=== PATIENT | male | born 1995 | race Caucasian/White ===

== ENCOUNTER 2017-11-10 23:48 | Emergency (ER) | payer MEDICAID ==
[~2017-11-10] VITALS: Ht 175.3 cm; Wt 77.0 kg
[2017-11-11] MEDS ORDERED: LORAZEPAM 2MG/ML CPJ IV STA (00:11)
[2017-11-11] MEDS ORDERED: SODIUM CHLORIDE 0.9% 1,000 ML IV ONE ×2 (00:11→03:00)
[2017-11-11] MEDS ORDERED: LORAZEPAM 2MG/ML CPJ IV ONE (01:00)
[2017-11-11 03:01] LABS: BASOPHILS % 0.3 % (0.0-2.0); HEMATOCRIT. 41.9 % (42.0-52.0); HEMOGLOBIN. 14.3 g/dL (14.0-18.0); LYMPHOCYTES % 12.4 % (20.0-50.0); MEAN CORPUSCULAR HEMOGLOBIN 29.8 pg (28.0-32.0); MEAN CORPUSCULAR VOLUME 87.3 fL (80.0-94.0); MEAN PLATELET VOLUME 7.9 fl (7.4-10.4); MONOCYTES % 5.2 % (2.0-8.0); NEUTROPHILS % 82.1 % (40.0-76.0); PLATELET 170 x1000/uL (130-400); RED CELL DISTRIBUTION WIDTH 12.9 % (11.6-14.6)
[2017-11-11 03:09] LABS: CHLORIDE 110 mEq/L (98-107)
[2017-11-11 03:13] LABS: AMMONIA 64 uMol/L (<32)
[2017-11-11 03:14] LABS: ETHANOL BLOOD < 10 mg/dL; PROTHROMBIN TIME 10.7 sec (9.4-11.6)
[2017-11-11 03:18] LABS: CREATINE KINASE 104 IU/L (39-308)
[2017-11-11 03:22] LABS: CARBAMAZEPINE < 0.5 ug/mL (4-12); PHENOBARBITAL < 2.1 ug/mL (15.0-40.0); VALPROIC ACID < 3.0 ug/mL (50-100)
[2017-11-11] MEDS ORDERED: LACTULOSE 20G/30ML UDC PO NR (04:00)
[2017-11-11] MEDS ORDERED: LEVETIRACETAM 1000MG/100ML 100 ML IV NR (04:00)
[2017-11-11] MEDS ORDERED: LAM1 PO (04:00)
[2017-11-11 04:43] LABS: CLARITY URINE CLEAR (CLEAR); COLOR URINE YELLOW (YELLOW); KETONES URINE NEGATIVE (NEGATIVE); LEUKOCYTE ESTERASE URINE NEGATIVE (NEGATIVE); NITRITE URINE NEGATIVE (NEGATIVE); OCCULT BLOOD URINE NEGATIVE (NEGATIVE); PROTEIN URINE TRACE (NEGATIVE); SPECIFIC GRAVITY URINE 1.028 (1.005-1.030)
[2017-11-11 05:01] LABS: *AMPHETAMINES SCREEN URINE NEGATIVE (NEGATIVE); *BARBITURATES SCREEN URINE NEGATIVE (NEGATIVE)
[2017-11-11 05:02] LABS: *BENZODIAZEPINES SCREEN URINE NEGATIVE (NEGATIVE); *COCAINE SCREEN URINE NEGATIVE (NEGATIVE); CANNABINOID URINE SCREEN NEGATIVE (NEGATIVE); OPIATES URINE SCREEN NEGATIVE (NEGATIVE); PHENCYCLIDINE URINE SCREEN NEGATIVE (NEGATIVE)
[2017-11-11 05:04] LABS: METHADONE URINE SCREEN NEGATIVE (NEGATIVE)
[2017-11-11] MEDS ORDERED: SODIUM CHLORIDE 0.45% 1,000 ML IV SCH (06:04)
[2017-11-11] MEDS ORDERED: ENOXAPARIN 40MG/0.4ML SYR SUBCUT SCH (06:15)
[2017-11-11] MEDS ORDERED: CLONIDINE 0.1MG TABLET PO PRN (06:15)
[2017-11-11] MEDS ORDERED: DIPHENHYDRAMINE 50MG/ML VIAL IV PRN (06:15)
[2017-11-11] MEDS ORDERED: IPRATROPIUM/ALBUTEROL 0.5-3(2.5)MG/3ML NEB INH PRN (06:15)
[2017-11-11] MEDS ORDERED: ACETAMINOPHEN 325MG TABLET PO PRN (06:15)
[2017-11-11 06:51] LABS: CHLORIDE 111 mEq/L (98-107)
[2017-11-11] MEDS ORDERED: ASPIRIN 81MG EC TABLET PO SCH (09:00)
[2017-11-11] MEDS ORDERED: HYDROCODONE/ACETAMINOPHEN 5/325MG TABLET PO PRN (14:24)
[2017-11-11] MEDS ORDERED: GUAIFENESIN 200MG/10ML SUGAR FREE UDC PO PRN (14:24)
[2017-11-11] MEDS ORDERED: NA PHOS,M-B/NA PHOS,DI-BA ENEMA 118ML PR PRN (14:24)
[2017-11-11] MEDS ORDERED: ONDANSETRON HCL 4MG/2ML VIAL IV PRN (14:25)
[2017-11-11] MEDS ORDERED: MAGNESIUM/ALUMINUM HYDROXIDE/SIMETHICONE 30ML UDC PO PRN (14:25)
[2017-11-11] MEDS ORDERED: DOCUSATE SODIUM 100MG CAPSULE PO PRN (14:25)
[2017-11-11] MEDS ORDERED: HYDROMORPHONE HCL/PF 2MG/ML CPJ IV PRN (16:00)
[2017-11-11] MEDS ORDERED: LORAZEPAM 2MG/ML CPJ IV PRN (16:00)
[2017-11-11 18:00] VITALS: BP 130/77
== END 2017-11-11 18:55 | disposition left against medical advice (07) ==
LOC: ER 23:48 → EDBEDREQSVC 11-11 07:00 → ER 11-11 18:55 → ENRESERV 11-11 19:19 → CANRESERV 11-11 19:19 → CANBEDREQ 11-11 19:52
DX: G40.909 Epilepsy, unspecified, not intractable, without status epilepticus (principal); S09.90XA Unspecified injury of head, initial encounter; I10 Essential (primary) hypertension; W06.XXXA Fall from bed, initial encounter; Y93.89 Activity, other specified; Y92.89 Other specified places as the place of occurrence of the external cause; Y99.8 Other external cause status
CPT/HCPCS: 36415; 70450; 71045; 80048; 80053; 80156; 80165; 80184; 80185; 80305; 80307; 80329; 81003; 82140; 82550; 82962; 83605; 83690; 83880; 84443; 84484; 85025; 85610; 93005; 96374; 96376; 99285; G0482; J1953; J2060; J7030; 96361; 96365; 96375